=== PATIENT | female | born 2000 | race Two or more races ===

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

== ENCOUNTER 2022-07-06 14:53 | Emergency (ER) | payer MEDICAID, OTHER ==
[~2022-07-06] VITALS: Ht 157.5 cm; Wt 73.3 kg
[2022-07-06 16:15] VITALS: BP 114/57
[2022-07-06] MEDS ORDERED: CLIN300C8 PO (16:47)
[2022-07-06] MEDS ORDERED: ACET-1158 PO (16:47)
== END 2022-07-06 17:53 | disposition home or self-care (01) ==
LOC: ER 14:53
DX: J02.9 Acute pharyngitis, unspecified (principal); Z88.0 Allergy status to penicillin

== ENCOUNTER 2023-04-27 11:20 | Emergency (ER) | payer MEDICAID, OTHER ==
[~2023-04-27] VITALS: Ht 157.5 cm; Wt 73.0 kg
[~2023-04-27 11:20] MED LIST changes: +ACET500T58 PO; +CLIN300C70 PO
[2023-04-27] MEDS ORDERED: IBUPROFEN 800 MG TAB PO ONE (11:30)
[2023-04-27 11:53] LABS: Basophils # (auto) 0 10 ^3/uL (0-0.2); Basophils % (auto) 0.3 % (0.0-2.0); Eosinophils # (auto) 0.1 10 ^3/uL (0-0.8); Eosinophils % (auto) 0.9 % (0.0-7.0); Hematocrit 38.2 % (36.0-46.0); Hemoglobin 12.5 g/dL (12.2-16.2); Lymphocytes % (auto) 19.8 % (10.0-50.0); Mean Corpuscular Hemoglobin 27.9 pg (28.0-32.0); Mean Corpuscular Hgb Conc. 32.7 g/dL (32.0-36.0); Mean Corpuscular Volume 85.3 fL (80.0-100.0); Monocytes # (auto) 0.7 10 ^3/uL (0-1.3); Monocytes % (auto) 6.9 % (0.0-12.0); Neutrophils # (auto) 7.2 10 ^3/uL (1.6-8.6); Neutrophils % (auto) 72.1 % (37.0-80.0); Red Blood Cells 4.48 10^6/uL (4.0-5.20); Red Cell Distribution Width 13.9 % (11.8-14.3); White Blood Cell 9.9 10^3/uL (4.4-10.8)
[2023-04-27 12:02] LABS: Urine Bacteria NONE SEEN /hpf (None Seen); Urine Blood Negative /uL (Negative); Urine Mucus FEW (None Seen); Urine Specific Gravity 1.028 (1.001-1.035); Urine WBC 3 /hpf (0 - 5)
[2023-04-27 12:11] LABS: Calcium 8.7 mg/dL (8.5-10.1); Potassium 3.9 mmol/L (3.5-5.1)
[2023-04-27 12:15] LABS: BUN/Creatinine Ratio 9.4 (10.0-20.0); Bilirubin, Total 0.5 mg/dL (0.2-1.0); Total Protein 7.8 g/dL (6.4-8.2)
[2023-04-27 12:16] LABS: Alcohol, Urine < 3.0 mg/dL (0-10); Amphetamine Screen, Urine NEGATIVE (NEGATIVE); Barbiturate Scree,Urine NEGATIVE (NEGATIVE); Benzodiazephine Screen, Urine NEGATIVE (NEGATIVE); Cannabinoid Screen, Urine NEGATIVE (NEGATIVE); Cocaine Screen, Urine NEGATIVE (NEGATIVE); Phencyclidine Screen, Urine NEGATIVE (NEGATIVE)
[2023-04-27 12:25] LABS: Opiate Scree,Urine POSITIVE (NEGATIVE)
[2023-04-27 14:04] VITALS: BP 108/73
[2023-04-27] MEDS ORDERED: HYDR-4902 PO (20:51)
== END 2023-04-27 21:25 | disposition home or self-care (01) ==
LOC: ER 11:20 → EDBD 11:20 → ER 21:25
DX: K57.90 Diverticulosis of intestine, part unspecified, without perforation or abscess without bleeding (principal); R10.2 Pelvic and perineal pain; Z88.0 Allergy status to penicillin
CPT/HCPCS: 36415; 74176; 76700; 76856; 80053; 80307; 81001; 81025; 84702; 85025